=== PATIENT | female | born 1985 | race African-American/Black ===

== ENCOUNTER 2019-07-30 01:38 | Emergency (ER) | payer OTHER, SELFPAY ==
--- NOTE | ~2019-07-30 | CT_ITS ---
EXAMINATION: CT abdomen pelvis w con DATE: 07/30/2019 02:39 INDICATION: Mid abdominal pain. TECHNIQUE: Computed tomography (CT) of the abdomen and pelvis was performed with 100 mL Omnipaque 350 intravenous contrast. Automated exposure control and iterative reconstruction technique were employe d. The dose-length product was 714.12 mGy-cm. COMPARISON: CT abdomen and pelvis 06/24/2016 FINDINGS: The visualized portions of the lung bases demonstrate mild atelectasis. No pleural effusion . The heart size is normal. No pericardial effusion. The liver, gallbladder, spleen, pancreas, adrena l glands, and kidneys are normal. There are no dilated loops of bowel. The appendix is normal. There are no pathologically enlarged lymph nodes. There is trace pelvic ascites, likely physiologic. There is a benign bone island in right ischium. IMPRESSION: 1. No etiology for the patient's symptoms. Reviewed, dictated and finalized at location A.
[2019-07-30 01:40] VITALS: BP 129/76; PULSE 101; RESP 16; TEMP 37.3; O2SAT 100
[2019-07-30] MEDS: SODIUM CHLORIDE 0.9% IV 1,000 ML 999 ML IV CONT (02:02)
[2019-07-30 02:07] LABS: Basophils Percent Auto 0.2 % (0.2-1.2); Eosinophils Absolute Auto 0.1 K/mm3 (0-0.3); Eosinophils Percent Auto 0.6 % (0-4.4); Hematocrit 37.8 % (37.0-47.0); Hemoglobin 11.9 g/dL (12.0-15.0); Immature Granulocyte Absolute 0.07 K/mm3 (0.00-0.031); Immature Granulocyte Percent A 0.4 % (0-0.5); Lymphocytes Absolute Auto 3.27 K/mm3 (0.9-3.2); Lymphocytes Percent Auto 20.5 % (18.3-44.2); Mean Corpuscular HGB Conc 31.5 g/dl (32-36); Mean Corpuscular Hemoglobin 27.7 pg (26-34); Mean Corpuscular Volume 88.1 fl (80-100); Mean Platelet Volume 9.6 fl (7.4-10.4); Monocytes Absolute Auto 0.8 K/mm3 (0.1-0.6); Monocytes Percent Auto 5.1 % (2.6-8.5); Neutrophils Absolute Auto 11.7 K/mm3 (1.3-6.7); Neutrophils Percent Auto 73.2 % (45.5-73.1); Platelet Count Result 321 k/mm3 (150-375); Red Blood Count 4.29 M/mm3 (4.2-5.4); Red Cell Distribution Width 14.9 % (11.5-14.5)
[2019-07-30 02:20] LABS: Alanine Aminotransferase 12 U/L (4-35); Albumin Level 4.2 g/dL (3.5-5.1); Alkaline Phosphatase 69 U/L (38-126); Aspartate Amino Transferase 23 U/L (14-36); Blood Urea Nitrogen 7 mg/dL (7-17); Calcium 9.1 mg/dL (8.4-10.2); Carbon Dioxide 26 mmol/L (22-30); Chloride 101 mmol/L (98-107); Estimated Glomerular Filt Rate > 60; Glucose 93 mg/dL (65-105); Lipase 45 U/L (23-300); Sodium 134 mmol/L (137-145)
[2019-07-30 02:27] LABS: Add Urine Microscopic? YES; Appearance Urine Cloudy (Clear); Bacteria Urine Trace /hpf; Bilirubin Urine Negative (Negative); Blood Urine 1+ (Negative); Color Urine Yellow (Yellow); Glucose Urine UA Negative (Negative); Ketones Urine Negative (Negative); Leukocyte Esterase Ur 3+ LEU/UL (Negative); Mucus Urine Rare /lpf; Nitrate Urine Negative (Negative); Protein Urine Negative (Negative); Specific Grav Ur 1.012 (1.001-1.035); Squamous Epithelial Cell Urine Many /hpf (Few); WBC Urine 51-75 /hpf
[2019-07-30] MEDS: KETOROLAC 30 MG/ML VIAL (*BKC) IV PUSH (02:43)
--- NOTE | 2019-07-30 03:23 | ED.ABDPAIN ---
HPI - Abdominal Pain General Chief Complaint: Abdominal Pain Stated Complaint: abd pain Time Seen by Provider: 07/30/19 01:43 Source: RN notes reviewed History of Present Illness HPI narrative: Patient presents emergency department from home for abdominal pain. Patient states pain began 3 days ago. Patient states pain is intermittent located in lower abdomen described as cramping and does not radiate. Patient states that she had a small bowel movement yesterday and give her self a fleets enema tonight states she had increased cramping following this she denies any fevers or chills chest pain, shortness of breath nausea vomiting or any other symptoms states she took no previous pain medication Related Data Allergies Allergy/AdvReac Type Severity Reaction Status Date / Time No Known Allergies Allergy Unknown Unverified 12/01/18 23:36 No Known Allergies Allergy Uncoded 12/01/18 23:36 Review of Systems Review of Systems: Narrative: Gen.: Denies fevers or chills ENT: Denies congestion Respiratory: Denies shortness of breath or cough CV: Denies chest pain or palpitations GI: see HPI denies burning, urgency, frequency or hematuria Musculoskeletal: Denies back pain or muscle pain Neuro: Denies numbness, tingling, weakness or focal weakness Skin: Denies rash Except as documented, all other systems reviewed and negative [facility] Past Medical History Medical History (Updated 07/30/19 @ 03:49 by Luke Ford DO) Patient denies significant medical history Family History Family History (Updated 09/22/15 @ 23:19 by DOCTOR UNKNOWN) Father Hypertension Family history of diabetes mellitus in first degree relative Mother Cerebrovascular accident Family history of hepatitis Family history of malignant neoplasm of breast in first degree relative Social History Social History Smoking status: Heavy tobacco smoker Second hand tobacco smoke exposure: No Smoking end date: 02/24/14 Alcohol intake: current Gender identity (if verbalized by the patient): Female Exam Narrative: Exam Narrative: APPEARANCE: No acute distress, nontoxic, resting in bed HEENT: Normocephalic, atraumatic, OMM RESPIRATORY: No respiratory distress, clear to auscultation bilaterally with no rhonchi wheezing or rales CARDIOVASCULAR: RRR s murmur ABDOMINAL: Soft, nondistended, tender palpation right lower quadrant left lower quadrant, no tenderness right upper quadrant left upper quadrant, no rebound or guarding MUSCULOSKELETAl: Moves all extremities. No clubbing, cyanosis or edema. NEURO: Awake and alert. Following commands, speech normal, no focal deficits SKIN:: Warm, dry. Normal Color PSYCHIATRIC: Normal affect/mood Course Course Emergency Course: Patient's abdomen is soft without significant pain or signs of surgical abdomen on serial exams. Lab and x-ray evaluations are reviewed and patient is felt to be a reasonable candidate for outpatient management. Patient was instructed as to limitations of x-ray and laboratory evaluation and encouraged to return to ED or primary physician for repeat exam in 12 hours if continued or worsening pain Vital Signs Vital signs: Vital Signs Temperature 99.1 F 07/30/19 01:40 Pulse Rate 101 H 07/30/19 01:40 Respiratory Rate 16 07/30/19 01:40 Blood Pressure 129/76 07/30/19 01:40 Pulse Oximetry 100 07/30/19 01:40 Temperature 98.2 F 07/30/19 03:40 Pulse Rate 80 07/30/19 03:40 Respiratory Rate 19 07/30/19 03:40 Blood Pressure 129/89 07/30/19 03:40 Pulse Oximetry 100 07/30/19 03:40 MDM - Abdominal Pain Lab Data Result diagrams: 07/30/19 02:00 07/30/19 02:00 Labs: Lab Results 07/30/19 07/30/19 07/30/19 Range/Units 02:00 02:00 02:00 WBC 16.0 H (4.5-10.0) K/mm3 RBC 4.29 (4.2-5.4) M/mm3 Hgb 11.9 L (12.0-15.0) g/dL Hct 37.8 (37.0-47.0) % MCV 88.1 (80-100
[2019-07-30 03:40] VITALS: BP 129/89; PULSE 80; RESP 19; TEMP 36.8; O2SAT 100
[2019-07-30 03:55] VITALS: BP 119/67; PULSE 80; RESP 19; TEMP 36.3; O2SAT 100
== END 2019-07-30 03:56 | disposition home or self-care (01) ==
PROVIDERS: Emergency Provider Emergency Medicine
DX: N39.0 Urinary tract infection, site not specified (principal); Z87.891 Personal history of nicotine dependence
CPT/HCPCS: 36415; 74177; 80053; 81001; 81025; 83605; 83690; 85025; 87040; 87086; 87088; 96361; 96365; 96375; 99284; J0696; J1885; J7030; Q9967

== ENCOUNTER 2023-01-23 11:44 | Emergency (ER) | payer OTHER, SELFPAY ==
[2023-01-23 12:28] VITALS: BP 112/80; PULSE 68; RESP 16; TEMP 36.6; O2SAT 100
--- NOTE | 2023-01-23 14:06 | ED.DENTAL ---
HPI - Dental/Oral General Chief complaint: Dental/Oral Stated complaint: TOOTH INFECTION Time Seen by Provider: 01/23/23 13:07 Source: patient Mode of arrival: ambulatory Limitations: no limitations History of Present Illness HPI Narrative: This is a 37-year-old female that presents to the emergency department for toothache present over the last couple of days. Reports a fractured tooth that has been painful. She has been taking over the counter pain medication with little relief. Denies fevers. MD Complaint: tooth pain Location: Tooth # (17) Related Data Allergies Allergy/AdvReac Type Severity Reaction Status Date / Time No Known Allergies Allergy Unknown Unverified 12/01/18 23:36 No Known Allergies Allergy Uncoded 12/01/18 23:36 Review of Systems Review of Systems: CONSTITUTIONAL: Denies fever ENT: Reports toothache All systems reviewed & are unremarkable except as noted in HPI and below PMFSH Past Medical History Medical History (Updated 01/23/23 @ 14:07 by Soo العراقي PA-C) Patient denies significant medical history Family History Family History (Updated 09/22/15 @ 23:19 by DOCTOR UNKNOWN) Father Hypertension Family history of diabetes mellitus in first degree relative Mother Cerebrovascular accident Family history of hepatitis Family history of malignant neoplasm of breast in first degree relative Social History Social History Smoking status: Heavy tobacco smoker Second hand tobacco smoke exposure: No Smoking end date: 02/24/14 Alcohol intake: current Gender identity (if verbalized by the patient): Female Exam Narrative: GENERAL: Well-appearing, well-nourished, and in no acute distress. HEAD: Normocephalic, atraumatic. EYES: EOMI. ENT: Oropharynx without tonsillar hypertrophy exudate or other lesions. Tooth #17 is fractured. No surrounding erythema or edema to suggest abscess. No trismus. Floor of mouth is soft NECK: Supple. No adenopathy or masses. CHEST: No respiratory distress. HEART: Regular rate EXTREMITIES: Normal range of motion. No edema. SKIN: Warm, dry, no rash. NEURO: No focal deficits. Alert and oriented x3. PSYCH: Normal mood and affect Course Course Emergency Course: Patient agrees with plan of care Vital Signs Vital signs: Vital Signs Temperature 97.9 F 01/23/23 12:28 Pulse Rate 68 11/30/23 12:28 Respiratory Rate 16 01/23/23 12:28 Blood Pressure 112/80 01/23/23 12:28 Pulse Oximetry 100 01/23/23 12:28 Temperature 97.9 F 01/23/23 12:28 Pulse Rate 68 01/23/23 12:28 Respiratory Rate 16 01/23/23 12:28 Blood Pressure 112/80 01/23/23 12:28 Pulse Oximetry 100 01/23/23 12:28 MDM - Dental/Oral MDM Narrative Medical decision making narrative: Patient presents to the ER for toothache present over the last couple of days. She is afebrile and nontoxic appearing. No trismus. No evidence for abscess on exam. Will be started on oral antibiotics. She is to follow up with a dentist. She was given warnings to return to the ER Differential Diagnosis Differential diagnosis: Likely dental caries, toothache, dental abscess and fracture of tooth Critical Care Time Critical Care Time Critical Care Time: No Discharge Plan Discharge Clinical Impression: Toothache Patient Disposition: Home, Self-Care Condition: Stable Instructions: Antibiotic Form, Toothache (ED) Additional Instructions: Return to the Emergency Department if you experience fever >101, increasing swelling and redness of your tooth, difficulty swallowing, trouble breathing, or any other symptoms that are concerning to you Take antibiotic as prescribed. Tylenol or Ibuprofen as needed for pain. You can apply a dab of clove oil to a Qtip and apply to the tooth to help numb the area Follow up with your dentist Prescriptions: New amoxicillin-pot clavulanate 875-125 mg tablet
== END 2023-01-23 14:34 | disposition home or self-care (01) ==
PROVIDERS: Emergency Provider Physician Assistant; PCP Family Medicine
DX: K08.89 Other specified disorders of teeth and supporting structures (principal); F17.210 Nicotine dependence, cigarettes, uncomplicated
CPT/HCPCS: 99283